=== PATIENT | female | born 1950 | race Caucasian/White ===

== ENCOUNTER 2024-09-05 06:23 | Day surgery (SDC) | payer MEDICARE, OTHER, SELFPAY | END 2024-09-05 11:41 | disposition home or self-care (01) | LOC: GI 06:23 | PROVIDERS: ATTENDING PHYSICIAN Internal Medicine Gastroenterology | DX: R12 Heartburn (principal); K31.7 Polyp of stomach and duodenum; K44.9 Diaphragmatic hernia without obstruction or gangrene; K31.89 Other diseases of stomach and duodenum; K31.A19 Gastric intestinal metaplasia without dysplasia, unspecified site; Z13.810 Encounter for screening for upper gastrointestinal disorder | CPT/HCPCS: 43239; 88305; 88342 ==